=== PATIENT | male | born 1980 | race Caucasian/White ===

== ENCOUNTER 2016-07-28 10:46 | Emergency (ER) | payer SELFPAY | END 2016-07-28 11:50 | disposition home or self-care (01) | LOC: ED 10:46 | DX: S61.211A Laceration without foreign body of left index finger without damage to nail, initial encounter (principal); W29.8XXA Contact with other powered hand tools and household machinery, initial encounter; Y92.008 Other place in unspecified non-institutional (private) residence as the place of occurrence of the external cause | CPT/HCPCS: 90715; A4550 ==

== ENCOUNTER 2018-03-06 08:54 | Emergency (ER) | payer SELFPAY ==
[~2018-03-06] VITALS: Ht 177.8 cm; Wt 104.5 kg
[2018-03-06] MEDS ORDERED: CEPHALEXIN500 M1 PO (10:12)
[2018-03-06] MEDS ORDERED: BACTRIM DS TAB1 EACH PO (10:12)
[2018-03-06 10:22] VITALS: BP 151/81
== END 2018-03-06 10:22 | disposition home or self-care (01) ==
LOC: ED 08:54
DX: L03.113 Cellulitis of right upper limb (principal); Z88.0 Allergy status to penicillin

== ENCOUNTER → 2018-05-15 | Outpatient (CLI) | payer SELFPAY ==
[~2018-05-15] MED LIST: BACTRIM DS TAB1 EACH PO; CEPHALEXIN500 M1 PO
[2018-05-15 14:10] LABS: ALBUMIN 4.3 g/dL (3.5-5.0); CALCIUM 9.4 mg/dL (8.4-10.2); POTASSIUM 4.7 mmol/L (3.6-5.0); TOTAL BILIRUBIN 0.4 mg/dL (0.2-1.3); TOTAL PROTEIN 8.5 g/dL (6.3-8.2)
[2018-05-15 14:16] LABS: EOS # 0.3 (0.04-0.40); EOS % 3.3 % (0.0-4.0); HEMATOCRIT 42.3 % (42.0-52.0); HEMOGLOBIN 13.8 g/dL (13.5-18.0); LYMPH# 2.3 (1.50-4.00); MEAN CELL VOLUME 87 fl (78-100); MEAN CORPUSCULAR HEMOGLOBIN 28 pg (27-31); MEAN CORPUSCULAR HGB CONC 33 g/dL (33-37); MEAN PLATELET VOLUME 10.2 fl (7.4-10.4); MONO # 1.1 (0.20-0.80); NEU # 6.4 (1.40-6.50); PLATELET COUNT 332 K/mm3 (130-400); RED BLOOD COUNT 4.86 M/mm3 (4.20-5.60); RED CELL DISTRIBUTION WIDTH 13.3 % (11.5-14.5); WHITE BLOOD COUNT 10.2 K/mm3 (4.8-10.8)
[2018-05-15 14:25] LABS: URINE APPEARANCE CLEAR; URINE COLOR YELLOW
[2018-05-15 14:26] LABS: URINE BILIRUBIN NEGATIVE (NEGATIVE); URINE BLOOD NEGATIVE (NEGATIVE); URINE KETONE 1+ (NEGATIVE); URINE LEUKOCYTE ESTERASE TRACE (NEGATIVE); URINE NITRATE NEGATIVE (NEGATIVE); URINE PROTEIN(semi-quant) TRACE mg/dL (NEGATIVE); URINE UROBILINOGEN NORMAL (NORMAL); URINE WBC 0-1 /hpf (0-3)
== END ==
LOC: RAD 12:46
PROVIDERS: Physician Assistant
DX: R10.9 Unspecified abdominal pain (principal)

== ENCOUNTER → 2018-12-09 | Outpatient (CLI) | payer SELFPAY | LOC: RAD 08:21 | DX: S61.439A Puncture wound without foreign body of unspecified hand, initial encounter (principal); M79.89 Other specified soft tissue disorders ==

== ENCOUNTER → 2019-10-05 | Outpatient (CLI) | payer SELFPAY | LOC: RAD 08:49 | DX: M25.562 Pain in left knee (principal); M79.662 Pain in left lower leg ==

== ENCOUNTER 2021-06-06 13:12 | Emergency (ER) | payer SELFPAY ==
[~2021-06-06] VITALS: Ht 177.8 cm; Wt 90.9 kg
[2021-06-06 14:04] LABS: MAGNESIUM 1.91 mg/dL (1.60-2.60)
[2021-06-06 14:25] LABS: LIPASE 101 U/L (8-78)
[2021-06-06 17:36] LABS: CALCIUM 9.1 mg/dL (8.3-10.5)
[2021-06-06 21:10] VITALS: BP 129/100
== END 2021-06-06 21:10 | disposition left against medical advice (07) ==
LOC: ED 13:12
PROVIDERS: Physician Assistant
DX: U07.1 COVID-19 (principal); E11.65 Type 2 diabetes mellitus with hyperglycemia; E86.0 Dehydration; E87.5 Hyperkalemia; F17.210 Nicotine dependence, cigarettes, uncomplicated
CPT/HCPCS: J1815; J7030

== ENCOUNTER → 2021-06-06 | Outpatient (CLI) | payer SELFPAY ==
[2021-06-06 12:33] LABS: BASO # 0.04 K/mm3 (0.02-0.10); EOS # 0.05 K/mm3 (0.04-0.40); EOS % 0.7 % (0.0-4.0); HEMATOCRIT 43.7 % (42.0-52.0); HEMOGLOBIN 14.7 g/dL (13.5-18.0); LYMPH# 1.73 K/mm3 (1.50-4.00); MEAN CELL VOLUME 83 fl (78-100); MEAN CORPUSCULAR HEMOGLOBIN 28 pg (27-31); MEAN CORPUSCULAR HGB CONC 34 g/dL (33-37); MEAN PLATELET VOLUME 10.4 fl (7.4-10.4); MONO # 0.46 K/mm3 (0.20-0.80); NEU # 5.04 K/mm3 (1.40-6.50); PLATELET COUNT 292 K/mm3 (130-400); RED BLOOD COUNT 5.29 M/mm3 (4.20-5.60); RED CELL DISTRIBUTION WIDTH 12.6 % (11.5-14.5); WHITE BLOOD COUNT 7.3 K/mm3 (4.8-10.8)
[2021-06-06 12:34] LABS: ALBUMIN 3.8 g/dL (3.5-5.0); POTASSIUM 5.5 mmol/L (3.5-5.1); SODIUM 122 mmol/L (136-145)
[2021-06-06 12:36] LABS: CALCIUM 9.1 mg/dL (8.3-10.5)
[2021-06-06 12:37] LABS: TOTAL PROTEIN 7.4 g/dL (6.4-8.3)
[2021-06-06 12:38] LABS: CARBON DIOXIDE 21 mmol/L (22-29)
[2021-06-06 12:39] LABS: TOTAL BILIRUBIN 0.3 mg/dL (0.2-1.2)
[2021-06-06 12:40] LABS: GLUCOSE > 800 mg/dL (75-110)
[2021-06-06 12:42] LABS: AST-SGOT 21 U/L (5-34)
[2021-06-06 12:43] LABS: ALT/SGPT 51 U/L (0-55)
[2021-06-06 15:46] LABS: PH-URINE 6.5 (5.0 - 8.0); URINE APPEARANCE CLEAR; URINE COLOR YELLOW; URINE PROTEIN(semi-quant) TRACE (NEGATIVE)
[2021-06-06 15:47] LABS: URINE BILIRUBIN NEGATIVE (NEGATIVE); URINE BLOOD NEGATIVE (NEGATIVE); URINE KETONE NEGATIVE (NEGATIVE); URINE LEUKOCYTE ESTERASE NEGATIVE (NEGATIVE); URINE NITRATE NEGATIVE (NEGATIVE); URINE UROBILINOGEN NORMAL (NORMAL)
== END ==
LOC: LAB 11:39
PROVIDERS: Nurse Practitioner Primary Care
DX: R63.4 Abnormal weight loss (principal); R19.6 Halitosis

== ENCOUNTER 2021-11-10 21:19 | Emergency (ER) | payer SELFPAY ==
[~2021-11-10] VITALS: Wt 90.9 kg
[2021-11-10] MEDS ORDERED: CLEOCIN HCL150 M1 PO (22:04)
[2021-11-10 22:09] VITALS: BP 159/84
== END 2021-11-10 22:27 | disposition home or self-care (01) ==
LOC: ED 21:19
DX: S61.211A Laceration without foreign body of left index finger without damage to nail, initial encounter (principal); F17.200 Nicotine dependence, unspecified, uncomplicated; Z28.310 Unvaccinated for COVID-19; W26.8XXA Contact with other sharp object(s), not elsewhere classified, initial encounter